=== PATIENT | female | born 1955 | race Caucasian/White ===

== ENCOUNTER 2021-02-03 07:50 | Day surgery (SDC) | payer MEDICARE ==
[~2021-02-03] VITALS: Ht 154.9 cm; Wt 90.9 kg
[2021-02-03 08:07] VITALS: BP 126/63
[2021-02-03] MEDS ORDERED: albumin 25% 100mL bottle x 1 IV PRN (08:25)
[2021-02-03] MEDS ORDERED: LISI1TAB53 PO (08:36)
[2021-02-03] MEDS ORDERED: FURO20TA4 PO (08:36)
[2021-02-03] MEDS ORDERED: POTASSIUM PO (08:36)
[2021-02-03] MEDS ORDERED: MULT-1085 PO (08:40)
[2021-02-03] MEDS ORDERED: Albuterol inhaler INH (08:40)
[2021-02-03 09:41] VITALS: BP 117/84
[2021-02-03 10:00] VITALS: BP 106/46
[2021-02-03 10:15] VITALS: BP 110/70
[2021-02-03 10:30] VITALS: BP_SYST 110; BP_SYST 111; BP_DIAS 70; BP_DIAS 71
== END 2021-02-03 10:50 ==
LOC: SSTAY O 07:50
PROVIDERS: ATTEND Radiology Vascular & Interventional Radiology
DX: K70.31 Alcoholic cirrhosis of liver with ascites (principal); I10 Essential (primary) hypertension; G93.41 Metabolic encephalopathy; E83.119 Hemochromatosis, unspecified; F10.20 Alcohol dependence, uncomplicated; Z87.19 Personal history of other diseases of the digestive system; Z87.440 Personal history of urinary (tract) infections; Z72.89 Other problems related to lifestyle; Z79.899 Other long term (current) drug therapy
CPT/HCPCS: 49083

== ENCOUNTER 2021-02-15 06:02 | Day surgery (SDC) | payer MEDICARE, OTHER ==
[~2021-02-15] VITALS: Ht 154.9 cm; Wt 90.9 kg
[~2021-02-15 06:02] MED LIST: Albuterol inhaler INH; FURO20TA4 PO; LISI1TAB53 PO; MULT-1085 PO; POTASSIUM PO
[2021-02-15] MEDS ORDERED: albumin 25% 100mL bottle x 1 IV PRN (06:10)
[2021-02-15] MEDS ORDERED: FURO40TA4 PO (06:23)
[2021-02-15] MEDS ORDERED: PANT40TA54 PO (06:23)
[2021-02-15] MEDS ORDERED: SPIR25TA5 PO (06:23)
[2021-02-15] MEDS ORDERED: LACT10SO3 PO (06:25)
[2021-02-15 06:34] VITALS: BP 130/72
[2021-02-15] MEDS ORDERED: LIDOcaine 1% 30ml preserv. free vial IJ STA (07:31)
[2021-02-15 08:40] VITALS: BP 128/77
[2021-02-15 08:50] VITALS: BP 161/78
--- NOTE | 2021-02-15 09:10 | NUR ---
Patient picked up by edgar via gurney. Paracentesis site stable without drainage. 2250 ml clear dayday fluid out, pt managed to pull her drain out from under the sterile drape. Dressed with sterile gauze and clear dressing to cover. DC paperwork given to edgar driscoll [facility]
== END 2021-02-15 09:10 ==
LOC: SSTAY O 06:02
PROVIDERS: ATTEND Preventive Medicine Aerospace Medicine
DX: K70.31 Alcoholic cirrhosis of liver with ascites (principal); G93.41 Metabolic encephalopathy; I10 Essential (primary) hypertension; F10.20 Alcohol dependence, uncomplicated; Z87.19 Personal history of other diseases of the digestive system; Z87.440 Personal history of urinary (tract) infections; Z72.89 Other problems related to lifestyle; Z79.899 Other long term (current) drug therapy
CPT/HCPCS: 49083